=== PATIENT | male | born 1935 | race Caucasian/White ===

== ENCOUNTER 2017-03-30 18:34 | Emergency (ER) | payer MEDICARE ==
[~2017-03-30] VITALS: Wt 83.9 kg
[2017-03-30 19:28] LABS: BILIRUBIN NEGATIVE (NEGATIVE); BLOOD 3+ (NEGATIVE); CLARITY CLOUDY (CLEAR); COLOR RED (YELLOW); GLUCOSE NEGATIVE (NEGATIVE); KETONE NEGATIVE (NEGATIVE); LEUKO ESTERASE 3+ (NEGATIVE); NITRITE NEGATIVE (NEGATIVE); PH 6.5 (5.0-9.0); UROBILINOGEN 0.2 E.U./dl (0.2-1.0)
[2017-03-30 19:47] LABS: BACTERIA 2+; RBC TNTC rbc/hpf (0-2); WBC TNTC wbc/hpf (0-5)
[2017-03-30] MEDS ORDERED: AMINOPHYLLIN200 MG PO (20:07)
== END 2017-03-30 20:33 | disposition home or self-care (01) ==
LOC: ED 18:34
PROVIDERS: Nurse Practitioner Family
DX: N39.0 Urinary tract infection, site not specified (principal); R31.9 Hematuria, unspecified; Z91.040 Latex allergy status; Z46.6 Encounter for fitting and adjustment of urinary device

== ENCOUNTER 2017-06-07 11:44 | Emergency (ER) | payer MEDICARE ==
[~2017-06-07] VITALS: Ht 180.3 cm; Wt 81.6 kg
[~2017-06-07 11:44] MED LIST: AMINOPHYLLIN200 MG PO
[2017-06-07] MEDS ORDERED: LIDODERM1 EACH T (13:46)
== END 2017-06-07 14:00 | disposition home or self-care (01) ==
LOC: ED 11:44
DX: S22.32XA Fracture of one rib, left side, initial encounter for closed fracture (principal); Z79.899 Other long term (current) drug therapy; Z91.040 Latex allergy status; V98.8XXA Other specified transport accidents, initial encounter; Y93.89 Activity, other specified; Y92.89 Other specified places as the place of occurrence of the external cause; Y99.8 Other external cause status